=== PATIENT | female | born 2000 | race Hispanic/Latino ===

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

== ENCOUNTER 2020-02-29 10:35 | Observation (INO) | payer MEDICAID ==
[~2020-02-29] VITALS: Ht 154.9 cm; Wt 100.2 kg
[2020-02-29] MEDS ORDERED: ONDANSETRON HCL 4 MG/2 ML VIAL ONE (11:16)
[2020-02-29 11:21] LABS: BASOPHILS % (AUTO) 0.2 % (0.0-5.0); HEMATOCRIT 34.2 % (36-48); LYMPHOCYTES % (AUTO) 10.7 % (21.0-51.0); MEAN CORPUSCULAR HEMOGLOBIN 29.8 pg (27.0-33.0); MEAN CORPUSCULAR HGB CONC 34.5 g/dL (32.0-36.0); MEAN CORPUSCULAR VOLUME 86.4 fL (80-100); MONOCYTES % (AUTO) 3.6 % (3.0-13.0); NEUTROPHILS % (AUTO) 84.8 % (40.0-77.0); PLATELET COUNT (AUTO) 229 K/uL (130-400); RED BLOOD CELL COUNT(AUTO) 3.96 MIL/uL (4.00-5.50); RED CELL DISTRIBUTION WIDTH 13.2 % (11.0-15.5); WHITE BLOOD COUNT (AUTO) 18.8 K/uL (4.8-10.8)
[2020-02-29 11:50] LABS: CREATININE 0.5 mg/dL (0.5-1.5); POTASSIUM 3.5 mmol/L (3.5-5.1)
[2020-02-29 11:55] LABS: ALBUMIN 3.2 g/dL (3.5-5.0); BILIRUBIN,DIRECT 0.1 mg/dL (0.0-0.3); BILIRUBIN,TOTAL 0.3 mg/dL (0.2-1.0); TOTAL PROTEIN, SERUM 7.3 g/dL (6.0-8.3)
[2020-02-29 13:57] VITALS: BP 106/64
[2020-02-29] MEDS ORDERED: ONDANSETRON HCL 4 MG/2 ML VIAL IVP PRN (14:45)
[2020-02-29] MEDS ORDERED: PANTOPRAZOLE 40 MG/VIAL IVP SCH (15:00)
== END 2020-02-29 15:10 | disposition home or self-care (01) ==
LOC: EDH 10:35 → LDH 13:27
PROVIDERS: ADMIT Obstetrics & Gynecology; ATTEND Obstetrics & Gynecology
DX: O21.0 Mild hyperemesis gravidarum (principal); Z3A.23 23 weeks gestation of pregnancy
CPT/HCPCS: 36415; 80048; 80076; 82550; 83690; 85025; 99284; C9113; G0378; J2405

== ENCOUNTER 2020-03-02 12:50 | Emergency (ER) | payer MEDICAID ==
[2020-03-02] MEDS ORDERED: ONDANSETRON HCL 4 MG/2 ML VIAL ONE (13:19)
[2020-03-02] MEDS ORDERED: SODIUM CHLORIDE 0.9% 1000ML 1,000 ML IV ONE (13:19)
[2020-03-02 13:23] LABS: BASOPHILS % (AUTO) 0.3 % (0.0-5.0); EOSINOPHILS % (AUTO) 0.3 % (0.0-8.0); HEMATOCRIT 34.6 % (36-48); LYMPHOCYTES % (AUTO) 16.7 % (21.0-51.0); MEAN CORPUSCULAR HEMOGLOBIN 29.9 pg (27.0-33.0); MEAN CORPUSCULAR HGB CONC 34.7 g/dL (32.0-36.0); MEAN CORPUSCULAR VOLUME 86.3 fL (80-100); MONOCYTES % (AUTO) 6.1 % (3.0-13.0); PLATELET COUNT (AUTO) 214 K/uL (130-400); RED BLOOD CELL COUNT(AUTO) 4.01 MIL/uL (4.00-5.50); RED CELL DISTRIBUTION WIDTH 13.2 % (11.0-15.5); WHITE BLOOD COUNT (AUTO) 14.9 K/uL (4.8-10.8)
[2020-03-02 13:28] LABS: APPEARANCE,URINE Clear (CLEAR); BILIRUBIN,URINE Small (NEGATIVE); COLOR,URINE Dark Yellow (YELLOW); GLUCOSE, URINE (UA) Negative (NEGATIVE); KETONES,URINE >=160 mg/dL (NEGATIVE); LEUKOCYTE ESTERASE ,URINE Trace (NEGATIVE); NITRATE,URINE Negative (NEGATIVE); OCCULT BLOOD,URINE Negative (NEGATIVE); PROTEIN,URINE POS 1+ mg/dL (NEGATIVE)
[2020-03-02 13:34] LABS: CREATININE 0.5 mg/dL (0.5-1.5)
[2020-03-02 13:35] LABS: AMPHET/METH SCREEN,URINE NEGATIVE (NEGATIVE); BARBITURATE SCREEN, URINE NEGATIVE (NEGATIVE); BENZODIAZEPINES SCREEN,URINE NEGATIVE (NEGATIVE); CANNABINOID SCREEN,URINE NEGATIVE (NEGATIVE); COCAINE SCREEN,URINE NEGATIVE (NEGATIVE); OPIATE SCREEN,URINE NEGATIVE (NEGATIVE); PHENCYCLIDINE SCREEN,URINE NEGATIVE (NEGATIVE)
[2020-03-02 13:36] LABS: BACTERIA,URINE Rare /HPF (None Seen); MUCUS,URINE Many LPF (None Seen); RBC,URINE None Seen /HPF (0-1); WBC,URINE 0-1 /HPF (0-1)
[2020-03-02 13:38] LABS: ALBUMIN 3.2 g/dL (3.5-5.0); BILIRUBIN,TOTAL 0.4 mg/dL (0.2-1.0); TOTAL PROTEIN, SERUM 7.2 g/dL (6.0-8.3)
[2020-03-02] MEDS ORDERED: POTASSIUM BICARB/CIT AC 25 MEQ TABLET.EFF ONE (13:41)
== END 2020-03-02 15:26 | disposition home or self-care (01) ==
LOC: EDH 12:50
DX: O99.282 Endocrine, nutritional and metabolic diseases complicating pregnancy, second trimester (principal); O21.2 Late vomiting of pregnancy; E87.6 Hypokalemia; Z87.891 Personal history of nicotine dependence; Z3A.23 23 weeks gestation of pregnancy
CPT/HCPCS: 36415; 76705; 80053; 80305; 81001; 83690; 85025; 96361; 96374; 99284; J2405; J7030

== ENCOUNTER 2021-02-20 00:23 | Emergency (ER) | payer MEDICAID ==
[2021-02-20] MEDS ORDERED: METOCLOPRAMIDE 10 MG/2 ML VIAL ONE (01:11)
[2021-02-20] MEDS ORDERED: DiphenhydrAMINE HCL 50 MG/ML VIAL ONE (01:12)
[2021-02-20 01:13] LABS: BASOPHILS % (AUTO) 0.4 % (0.0-5.0); EOSINOPHILS % (AUTO) 1.1 % (0.0-8.0); HEMATOCRIT 40.8 % (36-48); LYMPHOCYTES % (AUTO) 21.1 % (21.0-51.0); MEAN CORPUSCULAR HEMOGLOBIN 30.6 pg (27.0-33.0); MEAN CORPUSCULAR HGB CONC 35.3 g/dL (32.0-36.0); MEAN CORPUSCULAR VOLUME 86.6 fL (80-100); MONOCYTES % (AUTO) 6.4 % (3.0-13.0); NEUTROPHILS % (AUTO) 70.4 % (40.0-77.0); PLATELET COUNT (AUTO) 160 K/uL (130-400); RED BLOOD CELL COUNT(AUTO) 4.71 MIL/uL (4.00-5.50); RED CELL DISTRIBUTION WIDTH 13.3 % (11.0-15.5); WHITE BLOOD COUNT (AUTO) 18.2 K/uL (4.8-10.8)
[2021-02-20 01:17] LABS: BILIRUBIN,URINE Negative (NEGATIVE); COLOR,URINE Yellow (YELLOW); GLUCOSE, URINE (UA) Negative (NEGATIVE); KETONES,URINE 40 mg/dL (NEGATIVE); LEUKOCYTE ESTERASE ,URINE Trace (NEGATIVE); NITRATE,URINE Negative (NEGATIVE); OCCULT BLOOD,URINE Negative (NEGATIVE); PH,URINE 6.5 (5.0-8.0); PROTEIN,URINE Negative (NEGATIVE)
[2021-02-20 01:19] LABS: HCG,QUAL RESULT POSITIVE (NEGATIVE)
[2021-02-20 01:23] LABS: APPEARANCE,URINE CLOUDY (CLEAR)
[2021-02-20 01:26] LABS: AMPHET/METH SCREEN,URINE NEGATIVE (NEGATIVE); BARBITURATE SCREEN, URINE NEGATIVE (NEGATIVE); BENZODIAZEPINES SCREEN,URINE NEGATIVE (NEGATIVE); CANNABINOID SCREEN,URINE NEGATIVE (NEGATIVE); COCAINE SCREEN,URINE NEGATIVE (NEGATIVE); OPIATE SCREEN,URINE NEGATIVE (NEGATIVE); PHENCYCLIDINE SCREEN,URINE NEGATIVE (NEGATIVE)
[2021-02-20 01:30] LABS: BACTERIA,URINE Few /HPF (None Seen); MUCUS,URINE Few LPF (None Seen); RBC,URINE 0-1 /HPF (0-1)
[2021-02-20 01:45] LABS: CREATININE 0.6 mg/dL (0.5-1.5); POTASSIUM 3.6 mmol/L (3.5-5.1)
[2021-02-20 01:51] LABS: ALBUMIN 3.6 g/dL (3.5-5.0); BILIRUBIN,TOTAL 0.3 mg/dL (0.2-1.0); TOTAL PROTEIN, SERUM 7.4 g/dL (6.0-8.3)
== END 2021-02-20 03:31 | disposition home or self-care (01) ==
LOC: EDH 00:23
DX: O21.9 Vomiting of pregnancy, unspecified (principal); O26.891 Other specified pregnancy related conditions, first trimester; R19.7 Diarrhea, unspecified; R10.84 Generalized abdominal pain; Z3A.12 12 weeks gestation of pregnancy
CPT/HCPCS: 36415; 80053; 80305; 81001; 81025; 83690; 85025; 96361; 96365; 96366; 96375; 99284; J1200; J2550; J2765; J7030

== ENCOUNTER 2021-02-23 02:23 | Emergency (ER) | payer MEDICAID ==
[2021-02-23] MEDS ORDERED: ONDANSETRON HCL 4 MG/2 ML VIAL ONE (03:13)
[2021-02-23] MEDS ORDERED: METOCLOPRAMIDE 10 MG/2 ML VIAL ONE (03:13)
[2021-02-23] MEDS ORDERED: SODIUM CHLORIDE 0.9% 1000ML 1,000 ML IV ONE (03:14)
[2021-02-23 03:31] LABS: BASOPHILS % (AUTO) 0.4 % (0.0-5.0); EOSINOPHILS % (AUTO) 1.8 % (0.0-8.0); HEMATOCRIT 37.1 % (36-48); LYMPHOCYTES % (AUTO) 14.8 % (21.0-51.0); MEAN CORPUSCULAR HEMOGLOBIN 29.5 pg (27.0-33.0); MEAN CORPUSCULAR HGB CONC 34.5 g/dL (32.0-36.0); MEAN CORPUSCULAR VOLUME 85.5 fL (80-100); MONOCYTES % (AUTO) 8.1 % (3.0-13.0); NEUTROPHILS % (AUTO) 74.5 % (40.0-77.0); PLATELET COUNT (AUTO) 174 K/uL (130-400); RED BLOOD CELL COUNT(AUTO) 4.34 MIL/uL (4.00-5.50)
[2021-02-23 03:53] LABS: ALBUMIN 3.3 g/dL (3.5-5.0); BILIRUBIN,TOTAL 0.8 mg/dL (0.2-1.0); CREATININE 0.5 mg/dL (0.5-1.5); TOTAL PROTEIN, SERUM 6.7 g/dL (6.0-8.3)
[2021-02-23 03:56] LABS: POTASSIUM 2.8 mmol/L (3.5-5.1)
[2021-02-23] MEDS ORDERED: POTASSIUM BICARB/CIT AC 25 MEQ TABLET.EFF ONE (04:35)
[2021-02-23 05:13] LABS: APPEARANCE,URINE Clear (CLEAR); BILIRUBIN,URINE Negative (NEGATIVE); COLOR,URINE Yellow (YELLOW); GLUCOSE, URINE (UA) Negative (NEGATIVE); KETONES,URINE >=160 mg/dL (NEGATIVE); LEUKOCYTE ESTERASE ,URINE Negative (NEGATIVE); NITRATE,URINE Negative (NEGATIVE); OCCULT BLOOD,URINE Negative (NEGATIVE); PH,URINE 5.5 (5.0-8.0); PROTEIN,URINE Negative (NEGATIVE)
== END 2021-02-23 05:35 | disposition home or self-care (01) ==
LOC: EDH 02:23
DX: O21.1 Hyperemesis gravidarum with metabolic disturbance (principal); O26.891 Other specified pregnancy related conditions, first trimester; E86.0 Dehydration; Z3A.12 12 weeks gestation of pregnancy; Z98.890 Other specified postprocedural states
CPT/HCPCS: 36415; 80053; 81003; 85025; 96361; 96374; 96375; 99284; J2405; J2765; J7030

== ENCOUNTER 2021-02-23 21:42 | Observation (INO) | payer MEDICAID ==
[~2021-02-23] VITALS: Ht 154.9 cm; Wt 94.3 kg
[2021-02-23] MEDS ORDERED: SODIUM CHLORIDE 0.9% 1000ML 1,000 ML IV ONE (22:10)
[2021-02-23 22:18] LABS: APPEARANCE,URINE Clear (CLEAR); BILIRUBIN,URINE Moderate (NEGATIVE); COLOR,URINE Dark Yellow (YELLOW); GLUCOSE, URINE (UA) Negative (NEGATIVE); KETONES,URINE >=160 mg/dL (NEGATIVE); LEUKOCYTE ESTERASE ,URINE Trace (NEGATIVE); NITRATE,URINE Negative (NEGATIVE); OCCULT BLOOD,URINE Negative (NEGATIVE); PROTEIN,URINE POS 1+ mg/dL (NEGATIVE)
[2021-02-23 22:29] LABS: BASOPHILS % (AUTO) 0.3 % (0.0-5.0); EOSINOPHILS % (AUTO) 2.2 % (0.0-8.0); HEMATOCRIT 35.7 % (36-48); LYMPHOCYTES % (AUTO) 12.1 % (21.0-51.0); MEAN CORPUSCULAR HEMOGLOBIN 29.7 pg (27.0-33.0); MEAN CORPUSCULAR VOLUME 84.8 fL (80-100); MONOCYTES % (AUTO) 7.3 % (3.0-13.0); NEUTROPHILS % (AUTO) 77.6 % (40.0-77.0); PLATELET COUNT (AUTO) 169 K/uL (130-400); RED BLOOD CELL COUNT(AUTO) 4.21 MIL/uL (4.00-5.50); WHITE BLOOD COUNT (AUTO) 15.2 K/uL (4.8-10.8)
[2021-02-23] MEDS ORDERED: METOCLOPRAMIDE 10 MG/2 ML VIAL ONE (22:29)
[2021-02-23] MEDS ORDERED: PANTOPRAZOLE 40 MG/VIAL ONE (22:30)
[2021-02-23] MEDS ORDERED: ONDANSETRON HCL 4 MG/2 ML VIAL ONE ×2 (22:30→23:56)
[2021-02-23] MEDS ORDERED: FAMOTIDINE/PF 20 MG/2 ML VIAL IV ONE (22:31)
[2021-02-23] MEDS ORDERED: CEFTRIAXONE SODIUM 1 GM ONE (22:33)
[2021-02-23 22:36] LABS: AMPHET/METH SCREEN,URINE NEGATIVE (NEGATIVE); BARBITURATE SCREEN, URINE NEGATIVE (NEGATIVE); BENZODIAZEPINES SCREEN,URINE NEGATIVE (NEGATIVE); CANNABINOID SCREEN,URINE NEGATIVE (NEGATIVE); COCAINE SCREEN,URINE NEGATIVE (NEGATIVE); OPIATE SCREEN,URINE NEGATIVE (NEGATIVE); PHENCYCLIDINE SCREEN,URINE NEGATIVE (NEGATIVE)
[2021-02-23 22:40] LABS: BACTERIA,URINE Few /HPF (None Seen); MUCUS,URINE Moderate LPF (None Seen); RBC,URINE 0-1 /HPF (0-1); WBC,URINE 0-1 /HPF (0-1)
[2021-02-23 22:50] LABS: ALBUMIN 3.4 g/dL (3.5-5.0); BILIRUBIN,TOTAL 0.8 mg/dL (0.2-1.0); CREATININE 0.5 mg/dL (0.5-1.5); TOTAL PROTEIN, SERUM 6.7 g/dL (6.0-8.3)
[2021-02-23 22:56] LABS: POTASSIUM 2.8 mmol/L (3.5-5.1)
[2021-02-23] MEDS ORDERED: POTASSIUM BICARB/CIT AC 25 MEQ TABLET.EFF ONE (23:16)
[2021-02-23] MEDS ORDERED: DiphenhydrAMINE HCL 50 MG/ML VIAL ONE (23:26)
[2021-02-23] MEDS ORDERED: DEXTROSE 5 % AND 0.9 % NACL 1,000 ML IV ONE (23:29)
[2021-02-23] MEDS ORDERED: SODIUM CHLORIDE 0.9% 50 ML IV ONE (23:57)
[2021-02-24 00:44] VITALS: BP 122/85
[2021-02-24] MEDS ORDERED: ONDANSETRON HCL 4 MG/2 ML VIAL IVP PRN (00:45)
[2021-02-24] MEDS ORDERED: LACTATED RINGERS 1000ML 1,000 ML IV SCH (00:45)
[2021-02-24] MEDS ORDERED: PROMETHAZINE HCL 25 MG/ML 1ML AMPULE IM PRN (00:45)
[2021-02-24] MEDS ORDERED: POTASSIUM CHLORIDE 20MEQ/100ML 100 ML IV ONE (00:52)
[2021-02-24] MEDS: LIDOCAINE HCL-MPF 1% 2ML VIAL IJ PRN ×3 (01:50→05:37)
[2021-02-24] MEDS: POTASSIUM CHLORIDE 20MEQ/100ML 100 ML IV PRN ×3 (01:51→05:38)
[2021-02-24 03:28] VITALS: BP 129/73
[2021-02-24] MEDS ORDERED: METOCLOPRAMIDE 10 MG/2 ML VIAL IVP SCH (06:00)
[2021-02-24 08:00] VITALS: BP 129/61
== END 2021-02-24 08:55 | disposition home or self-care (01) ==
LOC: EDH 21:42 → EDHIP 02-24 00:01 → WSH 02-24 00:43
PROVIDERS: ADMIT Obstetrics & Gynecology; ATTEND Obstetrics & Gynecology
DX: O21.2 Late vomiting of pregnancy (principal); O99.281 Endocrine, nutritional and metabolic diseases complicating pregnancy, first trimester; E87.6 Hypokalemia; E88.89 Other specified metabolic disorders; E86.0 Dehydration; Z3A.12 12 weeks gestation of pregnancy
CPT/HCPCS: 36415 ×2; 80053; 80305; 81001; 83690; 84132 ×2; 85025; 96365; 96366 ×2; 96372; 96375; 99284 ×2; C9113; G0378 ×9; J0696; J1200; J2405 ×2; J2550; J2765 ×2; J3480 ×3; J3490 ×4; J7030; J7042

== ENCOUNTER 2021-09-02 21:56 | Inpatient (IN) | payer MEDICAID ==
[~2021-09-02] VITALS: Ht 154.9 cm; Wt 113.4 kg
[2021-09-02 22:55] LABS: APPEARANCE,URINE Clear (CLEAR); BILIRUBIN,URINE Negative (NEGATIVE); COLOR,URINE Yellow (YELLOW); GLUCOSE, URINE (UA) Negative (NEGATIVE); KETONES,URINE Trace mg/dL (NEGATIVE); LEUKOCYTE ESTERASE ,URINE Negative (NEGATIVE); NITRATE,URINE Negative (NEGATIVE); OCCULT BLOOD,URINE Negative (NEGATIVE); PROTEIN,URINE Trace mg/dL (NEGATIVE)
[2021-09-02] MEDS ORDERED: MEPERIDINE-PF 50 MG/ML SYG IVP PRN (23:00)
[2021-09-02] MEDS ORDERED: LACTATED RINGERS 500 ML 500 ML IV PRN (23:00)
[2021-09-02] MEDS ORDERED: ROPIVACAINE 0.2% 100ML VIAL 100 ML EP PRN (23:00)
[2021-09-02] MEDS ORDERED: OXYTOCIN-LR 20 UNITS/1000 ML 1,000 ML IV SCH (23:00)
[2021-09-02] MEDS ORDERED: NALOXONE HCL 0.4 MG/1 ML ML IV PRN (23:00)
[2021-09-02] MEDS ORDERED: EPHEDRINE SULFATE 50 MG/ML AMPULE IVP PRN (23:00)
[2021-09-02] MEDS ORDERED: PROMETHAZINE HCL 25 MG/ML 1ML AMPULE IM PRN (23:00)
[2021-09-02] MEDS ORDERED: LACTATED RINGERS 1000ML 1,000 ML IV PRN (23:00)
[2021-09-02 23:13] LABS: BACTERIA,URINE None Seen /HPF (None Seen); MUCUS,URINE Moderate LPF (None Seen); RBC,URINE None Seen /HPF (0-1); SQUAMOUS EPITHELIAL CELL,UR Moderate /HPF (0-2); WBC,URINE 0-1 /HPF (0-1)
[2021-09-03 00:49] LABS: AMPHET/METH SCREEN,URINE NEGATIVE (NEGATIVE); BARBITURATE SCREEN, URINE NEGATIVE (NEGATIVE); BENZODIAZEPINES SCREEN,URINE NEGATIVE (NEGATIVE); CANNABINOID SCREEN,URINE NEGATIVE (NEGATIVE); COCAINE SCREEN,URINE NEGATIVE (NEGATIVE); OPIATE SCREEN,URINE NEGATIVE (NEGATIVE); PHENCYCLIDINE SCREEN,URINE NEGATIVE (NEGATIVE)
[2021-09-03 02:29] LABS: HEMATOCRIT 33.8 % (36-48); MEAN CORPUSCULAR HEMOGLOBIN 26.5 pg (27.0-33.0); RED BLOOD CELL COUNT(AUTO) 4.07 MIL/uL (4.00-5.50); RED CELL DISTRIBUTION WIDTH 14.6 % (11.0-15.5); WHITE BLOOD COUNT (AUTO) 10.3 K/uL (4.8-10.8)
[2021-09-03] MEDS ORDERED: OXYTOCIN-LR 20 UNITS/1000 ML 1,000 ML IV SCH (03:00)
[2021-09-03] MEDS ORDERED: DIPH,PERTUSS(ACELL),TET VAC/PF 0.5 ML VIAL IM PRN (16:30)
[2021-09-03] MEDS ORDERED: ACETAMINOPHEN 325 MG TAB PO PRN (16:30)
[2021-09-03] MEDS ORDERED: MEASLES/MUMPS/RUBELLA VACCINE, LIVE 0.5 ML/VIAL SQ PRN (16:30)
[2021-09-03] MEDS ORDERED: LANOLIN 30GM OINTMENT TP PRN (16:30)
[2021-09-03] MEDS ORDERED: WITCH HAZEL 1 PAD TP PRN (16:30)
[2021-09-03] MEDS ORDERED: BENZOCAINE/LANOLIN/ALOE VERA 60 ML AEROSOL TP PRN (16:30)
[2021-09-03 17:35] VITALS: BP 134/87
[2021-09-03] MEDS: IBUPROFEN 600 MG TABLET PO PRN (17:48)
[2021-09-03 19:20] VITALS: BP 125/76
[2021-09-03] MEDS: ACETAMINOPHEN WITH CODEINE 1 TAB TAB PO PRN (19:33)
[2021-09-03] MEDS: DOCUSATE SODIUM 100 MG CAP PO SCH (20:46)
[2021-09-03 23:08] VITALS: BP 106/61
[2021-09-04 03:25] VITALS: BP 103/64
[2021-09-04 05:48] LABS: HEMATOCRIT 29.9 % (36-48); MEAN CORPUSCULAR HEMOGLOBIN 26.1 pg (27.0-33.0); MEAN CORPUSCULAR HGB CONC 32.1 g/dL (32.0-36.0); MEAN CORPUSCULAR VOLUME 81.3 fL (80-100); RED BLOOD CELL COUNT(AUTO) 3.68 MIL/uL (4.00-5.50); WHITE BLOOD COUNT (AUTO) 11.7 K/uL (4.8-10.8)
[2021-09-04 07:09] VITALS: BP 116/68
[2021-09-04 07:17] LABS: HEPATITIS Bs ANTIGEN SCREEN P Negative (Negative)
[2021-09-04] MEDS: DOCUSATE SODIUM 100 MG CAP PO SCH (09:04)
[2021-09-04] MEDS: ACETAMINOPHEN WITH CODEINE 1 TAB TAB PO PRN (09:05)
[2021-09-04 11:51] VITALS: BP 103/66
[2021-09-04 16:29] VITALS: BP 116/76
[2021-09-04] MEDS ORDERED: IBUP-2088 PO (16:43)
[2021-09-04] MEDS: IBUPROFEN 600 MG TABLET PO PRN (16:50)
== END 2021-09-04 17:20 | disposition home or self-care (01) | DRG 560 ==
LOC: EDH 21:56 → LDH 21:57 → OBSVTOIN 21:57 → LDH 09-03 06:20 → WSH 09-03 17:30
PROVIDERS: ADMIT Obstetrics & Gynecology; ATTEND Obstetrics & Gynecology
PROC: 10E0XZZ Delivery of Products of Conception, External Approach (ICD-10-PCS; principal; 2021-09-03)
PROC: 3E0R3BZ Introduction of Anesthetic Agent into Spinal Canal, Percutaneous Approach (ICD-10-PCS; 2021-09-03)
PROC: 00HU33Z Insertion of Infusion Device into Spinal Canal, Percutaneous Approach (ICD-10-PCS; 2021-09-03)
DX: O80 Encounter for full-term uncomplicated delivery (principal); Z37.0 Single live birth; Z3A.37 37 weeks gestation of pregnancy
CPT/HCPCS: 36415; 80305; 81001; 85027; 86592; 86850; 86900; 86901; 87340; A4314; G0378; J2590; J2795; J7120